=== PATIENT | female | born 1935 | race Caucasian/White ===

== ENCOUNTER 2016-11-05 08:23 | Emergency (ER) | payer MEDICARE, BC ==
[2016-11-05 09:23] LABS: Anion Gap 18 mmol/L (10-20); BUN (Urea Nitrogen) 17 mg/dL (9.8-20.1); Calc. Creatinine Clearance 0 mL/min (70-130); Calcium 8.8 mg/dL (7.8-10.44); Carbon Dioxide 22 mmol/L (23-31); Chloride 101 mmol/L (98-107); Estimated GFR-MDRD 59; Glucose 176 mg/dL (83-110); Potassium 4.7 mmol/L (3.5-5.1); Sodium 136 mmol/L (136-145)
[2016-11-05 09:24] LABS: Troponin I Less than 0.010 ng/mL (< 0.028)
[2016-11-05 09:26] LABS: Anisocytosis SLIGHT = 6-15 cells (100X) (0-5/hpf); Eosinophils 3 % (0-10); Hemoglobin 12.4 g/dL (12.0-16.0); Lymphocytes 31 % (21-51); MDiff Complete? YES; Mean Corpuscular Hemoglobin 28.8 pg (27.0-31.0); Mean Platelet Volume 6.6 fL (7.4-10.4); Monocytes 9 % (0-10); Neutrophil 57 % (42-75); PLT Morphology Comment Appears Adequate; Platelet Count 189 thou/uL (130-400); Red Blood Cell (RBC) Count 4.33 mill/uL (4.20-5.40); White Blood Cell (WBC) Count 5.2 thou/uL (4.8-10.8)
[2016-11-05] MEDS ORDERED: Ondansetron HCl/PF 4 MG/2 ML Vial ONE (09:32)
[2016-11-05] MEDS ORDERED: Famotidine/PF 20 mg/2ml Vial ONE (09:32)
[2016-11-05] MEDS ORDERED: Sodium Chloride 0.9% 500 ML ONE (09:32)
--- NOTE | 2016-11-05 09:39 | RAD ---
SINGLE VIEW OF THE CHEST: COMPARISON: 03/08/16. HISTORY: Lightheadedness. FINDINGS: A single view of the chest shows an enlarged cardiomediastinal silhouette. The patient is status po st sternotomy. The pacemaker is unchanged in position. There is no evidence of consolidation, mass , or pleural effusion. IMPRESSION: Cardiomegaly without evidence of acute cardiopulmonary disease. POS: [facility]
[2016-11-05 09:43] LABS: Bilirubin Negative (Negative); Blood, Urine Negative (Negative); Clarity Clear (Clear); Glucose, Urine (Dipstick) Negative (Negative); Leukocyte Negative (Negative); Nitrite Negative (Negative); Protein, Urine (Dipstick) Negative (Neg-Trace); Specific Gravity, Urine 1.015 (1.005-1.030); Urobilinogen 0.2 mg/dL (0.2-1.0)
== END 2016-11-05 10:33 | disposition home or self-care (01) ==
LOC: NAV ERS 08:23
DX: R42 Dizziness and giddiness (principal); I25.10 Atherosclerotic heart disease of native coronary artery without angina pectoris; I25.2 Old myocardial infarction; I10 Essential (primary) hypertension; E11.9 Type 2 diabetes mellitus without complications; Z95.0 Presence of cardiac pacemaker; Z86.73 Personal history of transient ischemic attack (TIA), and cerebral infarction without residual deficits; Z79.4 Long term (current) use of insulin; Z79.899 Other long term (current) drug therapy
CPT/HCPCS: 36416; 71010; 80048; 81003; 82553; 83880; 84484; 85025; 93005; 94760; 96361; 96374; 96375; J2405; J7050; S0028

== ENCOUNTER 2017-01-20 09:00 | Outpatient (CLI) | payer MEDICARE, BC ==
[2017-01-21 07:40] LABS: INR-International Normal Ratio 1.1
== END 2017-01-20 09:01 | disposition home or self-care (01) ==
LOC: NAV LAB 09:00
DX: Z51.81 Encounter for therapeutic drug level monitoring (principal); I48.91 Unspecified atrial fibrillation; Z79.01 Long term (current) use of anticoagulants
CPT/HCPCS: 85610

== ENCOUNTER 2017-01-27 14:22 | Outpatient (CLI) | payer MEDICARE, BC ==
[2017-01-27 15:53] LABS: Prothrombin Time 13.5 SEC (12.0-14.7)
[2017-01-28 07:38] LABS: Follow-up Coag Comp? YES; Follow-up Result - Coag REPORT FAXED
== END 2017-01-27 14:23 | disposition home or self-care (01) ==
LOC: NAVSJIPCSP 14:22
PROVIDERS: ATTEND Family Medicine
DX: Z51.81 Encounter for therapeutic drug level monitoring (principal); I48.91 Unspecified atrial fibrillation; Z79.01 Long term (current) use of anticoagulants
CPT/HCPCS: 36415; 85610

== ENCOUNTER 2017-02-03 12:20 | Outpatient (CLI) | payer MEDICARE, BC ==
[2017-02-03 13:17] LABS: Prothrombin Time 13.6 SEC (12.0-14.7)
[2017-02-03 13:27] LABS: Follow-up Coag Comp? YES; Follow-up Result - Coag REPORT FAXED
== END 2017-02-03 12:21 | disposition home or self-care (01) ==
LOC: NAVSJIPCSP 12:20
PROVIDERS: ATTEND Family Medicine
DX: Z51.81 Encounter for therapeutic drug level monitoring (principal); I48.91 Unspecified atrial fibrillation; Z79.01 Long term (current) use of anticoagulants
CPT/HCPCS: 36415; 85610

== ENCOUNTER 2017-02-10 17:48 | Outpatient (CLI) | payer MEDICARE, BC ==
[2017-02-10 20:19] LABS: INR-International Normal Ratio 1.1; Prothrombin Time 13.8 SEC (12.0-14.7)
== END 2017-02-10 17:49 | disposition home or self-care (01) ==
LOC: NAVSJIPCSP 17:48
PROVIDERS: ATTEND Family Medicine
DX: Z51.81 Encounter for therapeutic drug level monitoring (principal); I48.91 Unspecified atrial fibrillation; Z79.01 Long term (current) use of anticoagulants
CPT/HCPCS: 85610

== ENCOUNTER 2017-02-17 12:11 | Outpatient (CLI) | payer MEDICARE, BC ==
[2017-02-17 14:38] LABS: INR-International Normal Ratio 1.1; Prothrombin Time 14.1 SEC (12.0-14.7)
[2017-02-18 08:17] LABS: Follow-up Coag Comp? YES; Follow-up Result - Coag REPORT FAXED
== END 2017-02-17 12:12 | disposition home or self-care (01) ==
LOC: NAVSJIPCSP 12:11
PROVIDERS: ATTEND Family Medicine
DX: Z51.81 Encounter for therapeutic drug level monitoring (principal); I48.91 Unspecified atrial fibrillation; Z79.01 Long term (current) use of anticoagulants
CPT/HCPCS: 36415; 85610

== ENCOUNTER 2017-02-24 13:27 | Outpatient (CLI) | payer MEDICARE, BC ==
[2017-02-24 14:32] LABS: INR-International Normal Ratio 1.1; Prothrombin Time 14.1 SEC (12.0-14.7)
== END 2017-02-24 13:28 | disposition home or self-care (01) ==
LOC: NAVSJIPCSP 13:27
PROVIDERS: ATTEND Internal Medicine
DX: Z51.81 Encounter for therapeutic drug level monitoring (principal); I48.91 Unspecified atrial fibrillation; Z79.01 Long term (current) use of anticoagulants
CPT/HCPCS: 36415; 85610

== ENCOUNTER 2017-03-03 12:46 | Outpatient (CLI) | payer MEDICARE, BC ==
[2017-03-03 14:18] LABS: INR-International Normal Ratio 1.2; Prothrombin Time 14.9 SEC (12.0-14.7)
== END 2017-03-03 12:47 | disposition home or self-care (01) ==
LOC: NAVSJIPCSP 12:46
PROVIDERS: ATTEND Family Medicine
DX: Z51.81 Encounter for therapeutic drug level monitoring (principal); Z79.01 Long term (current) use of anticoagulants
CPT/HCPCS: 36415; 85610

== ENCOUNTER 2017-12-31 09:13 | Emergency (ER) | payer MEDICARE, BC ==
[2017-12-31 09:58] LABS: Bilirubin Negative (Negative); Blood, Urine Negative (Negative); Clarity Clear (Clear); Glucose, Urine (Dipstick) Negative (Negative); Leukocyte Negative (Negative); Nitrite Negative (Negative); Protein, Urine (Dipstick) Negative (Neg-Trace); Urobilinogen 0.2 mg/dL (0.2-1.0)
== END 2017-12-31 10:54 | disposition home or self-care (01) ==
LOC: NAV ERS 09:13
DX: N34.1 Nonspecific urethritis (principal); I25.10 Atherosclerotic heart disease of native coronary artery without angina pectoris; I25.2 Old myocardial infarction; Z86.73 Personal history of transient ischemic attack (TIA), and cerebral infarction without residual deficits; E11.9 Type 2 diabetes mellitus without complications; I10 Essential (primary) hypertension; Z79.899 Other long term (current) drug therapy; Z79.01 Long term (current) use of anticoagulants; Z79.4 Long term (current) use of insulin
CPT/HCPCS: 36416; 81003; 87086; 99283

== ENCOUNTER 2018-06-13 11:35 | Emergency (ER) | payer MEDICARE, BC ==
[2018-06-13 12:13] LABS: #Basophils 0.1 thou/uL (0.0-0.2); #Eosinphils 0.2 thou/uL (0.0-0.7); #Lymphocytes 1.9 thou/uL (1.20-3.40); #Monocytes 0.8 thou/uL (0.11-0.59); #Neutrophils 3.8 thou/uL (1.40-6.50); %Basophils 1.1 % (0.0-1.0); %Eosinophils 3.5 % (0.0-10.0); %Monocytes 11.6 % (0.0-10.0); %Neutrophils 55.9 % (42.0-75.0); Hemoglobin 10.1 g/dL (12.0-16.0); Mean Corpuscular HGB CONC 32.2 g/dL (32.0-36.0); Mean Corpuscular Hemoglobin 25.1 pg (27.0-31.0); Mean Corpuscular Volume 77.7 fL (78.0-98.0); Mean Platelet Volume 5.7 fL (7.4-10.4); Platelet Count 289 thou/uL (130-400); RBC Distribution Width 13.9 % (11.5-14.5); Red Blood Cell (RBC) Count 4.04 mill/uL (4.20-5.40); White Blood Cell (WBC) Count 6.9 thou/uL (4.8-10.8)
[2018-06-13 12:21] LABS: Bilirubin Negative (Negative); Blood, Urine Negative (Negative); Clarity Clear (Clear); Glucose, Urine (Dipstick) Negative (Negative); Leukocyte Negative (Negative); Nitrite Negative (Negative); Protein, Urine (Dipstick) Negative (Neg-Trace); Urobilinogen 0.2 mg/dL (0.2-1.0)
[2018-06-13 12:30] LABS: ALT (SGPT) 13 U/L (8-55); AST (SGOT) 12 U/L (5-34); Albumin 3.6 g/dL (3.4-4.8); Alkaline Phosphatase 84 U/L (40-150); Anion Gap 15 mmol/L (10-20); BUN (Urea Nitrogen) 19 mg/dL (9.8-20.1); Bilirubin, Total 0.4 mg/dL (0.2-1.2); Calc. Creatinine Clearance 0 mL/min (70-130); Calcium 9.1 mg/dL (7.8-10.44); Carbon Dioxide 22 mmol/L (23-31); Chloride 100 mmol/L (98-107); Estimated GFR-MDRD 46; Globulin 3.5 g/dL (2.4-3.5); Glucose 225 mg/dL (83-110); Potassium 4.4 mmol/L (3.5-5.1); Protein, Total 7.1 g/dL (6.0-8.3); Sodium 133 mmol/L (136-145)
--- NOTE | 2018-06-13 13:25 | RAD ---
FRONTAL VIEW CHEST: Date: 06/13/18 COMPARISON: 11/05/16. INDICATION: Altered mental status. FINDINGS: The lungs reveal interstitial prominence bilaterally. There is enlargement of the cardiac silhouette and pulmonary vasculature. Evidence of prior sternotomy. Left-sided cardiac pacing device remains. Th ere is hazy density at the lower chest bilaterally, which may be related to small volume pleural flui d. IMPRESSION: Evidence of decompensated CHF. Recommend continued follow-up to resolution. POS: [facility]
--- NOTE | 2018-06-13 13:42 | CT ---
CT OF THE BRAIN WITHOUT CONTRAST: Date: 06/13/18 INDICATION: History of altered mental status. COMPARISON: Prior study dated 03/12/16. FINDINGS: A large MCA distribution infarct is stable. Ex vacuo dilatation of the left lateral ventricle is roz lar appearing. No definite acute infarct, hemorrhage, or hydrocephalus is present. Skull and extracra nial soft tissues are within normal limits. Scattered vascular calcifications of intracranial arterie s is similar appearing. IMPRESSION: 1. No acute intracranial abnormality. 2. Stable left MCA distribution infarct. POS: [facility]
[2018-06-14] MEDS ORDERED: Furosemide 40 MG TAB ONE (10:47)
[2018-06-14] MEDS ORDERED: levETIRAcetam 500 MG TAB ONE (10:47)
[2018-06-14] MEDS ORDERED: Carvedilol 3.125 MG TAB ONE (10:47)
[2018-06-14] MEDS ORDERED: Rivaroxaban 10 MG TAB ONE (11:58)
[2018-06-14] MEDS ORDERED: Ubidecarenone 50 MG CAP PO SCH (12:00)
[2018-06-14] MEDS ORDERED: Ferrous Sulfate 325 MG TAB PO SCH (12:00)
[2018-06-14] MEDS ORDERED: Fish Oil 1,000 MG CAP PO SCH (12:00)
[2018-06-14] MEDS ORDERED: Rivaroxaban 10 MG TAB PO SCH (12:00)
[2018-06-14] MEDS ORDERED: LYRICA 25 MG FS SCH (12:00)
[2018-06-14] MEDS ORDERED: Triamterene/Hydrochlorothiazide TAB PO SCH (12:00)
[2018-06-14 14:09] LABS: #Basophils 0.1 thou/uL (0.0-0.2); #Eosinphils 0.2 thou/uL (0.0-0.7); #Lymphocytes 1.6 thou/uL (1.20-3.40); #Monocytes 0.7 thou/uL (0.11-0.59); #Neutrophils 3.5 thou/uL (1.40-6.50); %Basophils 1.5 % (0.0-1.0); %Lymphocytes 26.9 % (21.0-51.0); %Monocytes 10.8 % (0.0-10.0); %Neutrophils 57.7 % (42.0-75.0); Hemoglobin 9.9 g/dL (12.0-16.0); Mean Corpuscular Hemoglobin 24.5 pg (27.0-31.0); Mean Corpuscular Volume 78.9 fL (78.0-98.0); Platelet Count 256 thou/uL (130-400); RBC Distribution Width 14.2 % (11.5-14.5); Red Blood Cell (RBC) Count 4.05 mill/uL (4.20-5.40); White Blood Cell (WBC) Count 6.1 thou/uL (4.8-10.8)
[2018-06-14 14:16] LABS: Anion Gap 14 mmol/L (10-20); BUN (Urea Nitrogen) 16 mg/dL (9.8-20.1); Calc. Creatinine Clearance 0 mL/min (70-130); Carbon Dioxide 25 mmol/L (23-31); Chloride 101 mmol/L (98-107); Estimated GFR-MDRD 55; Glucose 295 mg/dL (83-110); Potassium 4.2 mmol/L (3.5-5.1); Sodium 136 mmol/L (136-145)
[2018-06-14] MEDS ORDERED: Furosemide 40 MG/4 ML VIAL ONE (15:20)
--- NOTE | 2018-06-14 16:52 | RAD ---
CHEST ONE VIEW: 06/14/18 HISTORY: Chest pain. COMPARISON: Radiograph 06/13/18. FINDINGS: Heart size is markedly enlarged. Mild pulmonary venous congestion. Calcified granuloma right upper lo be. There is a small left effusion. IMPRESSION: Similar appearance to the chest. Decompensated CHF. POS: [facility]
== END 2018-06-13 17:52 | disposition short-term general hospital (02) ==
LOC: NAV ERS 11:35
DX: R47.1 Dysarthria and anarthria (principal); R53.1 Weakness; I11.0 Hypertensive heart disease with heart failure; I50.9 Heart failure, unspecified; G40.909 Epilepsy, unspecified, not intractable, without status epilepticus; E78.5 Hyperlipidemia, unspecified; I48.91 Unspecified atrial fibrillation; I25.2 Old myocardial infarction; E11.9 Type 2 diabetes mellitus without complications; Z86.73 Personal history of transient ischemic attack (TIA), and cerebral infarction without residual deficits; Z79.01 Long term (current) use of anticoagulants; Z79.899 Other long term (current) drug therapy; Z79.891 Long term (current) use of opiate analgesic
CPT/HCPCS: 36416; 51701; 70450; 71045; 80048; 80053; 81003; 83880; 85025; 93005; 96374; A4353; J1940